=== PATIENT | male | born 1960 | race Caucasian/White ===

== ENCOUNTER 2018-01-23 06:53 | Day surgery (SDC) | payer OTHER, BC ==
[~2018-01-23 06:53] MED LIST: Lidocaine 1% PF 2 ML SDV INJECT SCH
[2018-01-23] MEDS: Polymyxin B/Trimethoprim 10 ML Bottle EYELF SCH ×4 (07:11→08:50)
[2018-01-23] MEDS: Brimonidine 0.2% Ophth Soln 5 ML Bottle EYELF SCH ×4 (07:17→08:50)
[2018-01-23] MEDS: Phenylephrine 2.5% Ophth Soln 2 ML Bot EYELF SCH ×5 (07:21→08:28)
--- NOTE | 2018-01-23 07:30 | PCM.PREANE ---
Preanesthetic Assessment - Procedure Proposed Procedure: Left Eye Extraction cataract with implant - Anesthesia/Transfusion/Family Hx Anesthesia History: Prior Anesthesia Without Reaction Family History of Anesthesia Reaction: No Transfusion History: No Prior Transfusion(s) - Review of Systems General: No Symptoms Pulmonary: No Symptoms Cardiovascular: No Symptoms Gastrointestinal: No Symptoms Neurological: No Symptoms Other: Reports: Diabetes (Type I - BS 255, no insulin this morning ) - Physical Assessment NPO Status Date: 01/22/18 NPO Status Time: 20:00 O2 Sat by Pulse Oximetry: 93 Respiratory Rate: 16 Vital Signs: Last Vital Signs Temp 37.2 C 01/23/18 07:00 Pulse 91 01/23/18 07:00 Resp 16 01/23/18 07:00 BP 124/66 01/23/18 07:00 Pulse Ox 93 L 01/23/18 07:00 Height: 1.78 m Weight: 81.647 kg ASA Class: 2 Mental Status: Alert & Oriented x3 Dentition: Reports: Dentures (leaving in for procedure ) Thyro-Mental Finger Breadths: 3 Mouth Opening Finger Breadths: 5 ROM/Head Extension: Full Lungs: Clear to Auscultation, Normal Respiratory Effort Cardiovascular: Regular Rate, Regular Rhythm - Allergies Allergies/Adverse Reactions: Allergies Allergy/AdvReac Type Severity Reaction Status Date / Time Penicillins Allergy Cannot Verified 01/22/18 13:12 Remember - Blood Blood Available: No - Acknowledgements Anesthesia Type Planned: MAC Pt an Appropriate Candidate for the Planned Anesthesia: Yes Alternatives and Risks of Anesthesia Discussed w Pt/Guardian: Yes Pt/Guardian Understands and Agrees with Anesthesia Plan: Yes PreAnesthesia Questionnaire - HOME MEDS Home Medications: Home Meds Aspirin [Halfprin] 81 mg PO DAILY 01/22/18 [History] Insulin Glarg,Human.Rec.Analog [Lantus Solostar] 12 units SQ QPM 01/22/18 [ History] Insulin Glarg,Human.Rec.Analog [Lantus Solostar] 24 units SQ QAM 01/22/18 [ History] Insulin Lispro [Humalog] 1 dose SQ ASDIRECTED 01/22/18 [History] Krill/Om-3/DHA/EPA/Phospho/Ast [Krill Oil 1,000 mg Softgel] 1 cap PO DAILY 01/22 [History] Lisinopril [Lisinopril] 20 mg PO DAILY 01/22/18 [History] Naphazo HCl/HPM/PS 80/Zn Sulf [Clear Eyes Complete Eye Drops] 1 drop EYEBOTH ASDIRECTED 01/22/18 [History] - CURRENT (IN HOUSE) MEDS Current Meds: Current Medications Brimonidine Tartrate (Alphagan 0.2% Ophth Soln) 0 ml EYELF ASDIRECTED YUNIOR Stop: 01/23/18 18:00 Last Admin: 01/23/18 07:17 Dose: 1 drop Cefuroxime Sodium (Zinacef) 0 mg EYELF ASDIRECTED YUNIOR Stop: 01/23/18 18:00 Lidocaine HCl (Xylocaine-Mpf 1%) 10 ml INJECT ASDIRECTED YUNIOR Stop: 01/23/18 18:00 Phenylephrine HCl (Saul-Synephrine 2.5% Ophth Soln) 0 ml EYELF ASDIRECTED YUNIOR Stop: 01/23/18 18:00 Last Admin: 01/23/18 07:21 Dose: 1 drop Pilocarpine HCl (Pilocar 4% Ophth Soln) 0 ml EYELF ASDIRECTED YUNIOR Stop: 01/23/18 18:00 Polymyxin/Trimethoprim Sulfate (Polytrim Ophth Soln) 0 ml EYELF ASDIRECTED YUNIOR Stop: 01/23/18 18:00 Last Admin: 01/23/18 07:11 Dose: 1 drop Tetracaine HCl (Tetracaine 0.5% Steri-Unit Radha) 0 ml EYELF ASDIRECTED YUNIOR Stop: 01/23/18 18:00 Tropicamide (Mydriacyl 1% Ophth Soln) 0 ml EYELF ASDIRECTED YUNIOR Stop: 01/23/18 18:00
[2018-01-23] MEDS: Tetracaine HCl/PF 0.5% 4 ML Bottle EYELF SCH ×2 (08:08→08:36)
[2018-01-23] MEDS: Pilocarpine 4% Ophth Soln 15 ML Bot EYELF SCH ×2 (08:42→08:50)
[2018-01-23] MEDS: Cefuroxime 10 MG/ML SYRINGE EYELF SCH ×2 (08:42→08:49)
--- NOTE | 2018-01-23 08:52 | PCM48HPAN ---
Post Anesthesia Note - EVALUATION WITHIN 48HRS OF ANESTHETIC Vital Signs in Normal Range: Yes Patient Participated in Evaluation: Yes Respiratory Function Stable: Yes Airway Patent: Yes Cardiovascular Function Stable: Yes Hydration Status Stable: Yes Pain Control Satisfactory: Yes Nausea and Vomiting Control Satisfactory: Yes Mental Status Recovered: Yes Pulse Rate: 67 SaO2: 92 Resp Rate: 16 Blood Pressure: 124/66
== END 2018-01-23 09:03 | disposition home or self-care (01) ==
LOC: JD.SDS 06:53
PROVIDERS: ATTEND Ophthalmology
DX: Q12.0 Congenital cataract (principal); E11.69 Type 2 diabetes mellitus with other specified complication; H25.13 Age-related nuclear cataract, bilateral; H35.3131 Nonexudative age-related macular degeneration, bilateral, early dry stage; H02.831 Dermatochalasis of right upper eyelid; H02.834 Dermatochalasis of left upper eyelid; I10 Essential (primary) hypertension; F17.210 Nicotine dependence, cigarettes, uncomplicated; Z88.0 Allergy status to penicillin; Z79.82 Long term (current) use of aspirin; Z79.4 Long term (current) use of insulin; Z79.899 Other long term (current) drug therapy
CPT/HCPCS: 66984; C1780; J0697; A9270-GY

== ENCOUNTER 2018-03-20 08:49 | Day surgery (SDC) | payer OTHER, BC ==
[~2018-03-20 08:49] MED LIST changes: +Cefuroxime 10 MG/ML SYRINGE EYERT SCH; +Pilocarpine 4% Ophth Soln 15 ML Bot EYERT SCH
[2018-03-20] MEDS: Polymyxin B/Trimethoprim 10 ML Bottle EYERT SCH ×3 (09:25→11:13)
[2018-03-20] MEDS: Brimonidine 0.2% Ophth Soln 5 ML Bottle EYERT SCH ×3 (09:32→11:13)
[2018-03-20] MEDS: Phenylephrine 2.5% Ophth Soln 2 ML Bot EYERT SCH ×5 (09:37→10:52)
--- NOTE | 2018-03-20 09:49 | PCM.PREANE ---
Preanesthetic Assessment - Anesthesia/Transfusion/Family Hx Anesthesia History: Prior Anesthesia Without Reaction Family History of Anesthesia Reaction: No Transfusion History: No Prior Transfusion(s) - Review of Systems General: No Symptoms, Other (blood sugar at 922 was 188) Pulmonary: Other (smoker 1/2 ppd) Cardiovascular: Other (HTN) Gastrointestinal: No Symptoms Neurological: No Symptoms Other: Reports: Diabetes - Physical Assessment NPO Status Date: 03/19/18 NPO Status Time: 20:00 Pulse: 87 O2 Sat by Pulse Oximetry: 93 Respiratory Rate: 16 Blood Pressure: 113/70 Temperature: 37.1 C Weight: 82.024 kg ASA Class: 2 Mental Status: Alert & Oriented x3 Airway Class: Mallampati = 2 Dentition: Reports: Normal Dentition, Dentures, Edentulous Thyro-Mental Finger Breadths: 3 Mouth Opening Finger Breadths: 3 ROM/Head Extension: Full Lungs: Clear to Auscultation, Normal Respiratory Effort Cardiovascular: Regular Rate, Regular Rhythm - Allergies Allergies/Adverse Reactions: Allergies Allergy/AdvReac Type Severity Reaction Status Date / Time Penicillins Allergy Cannot Verified 03/19/18 11:56 Remember - Acknowledgements Anesthesia Type Planned: MAC Pt an Appropriate Candidate for the Planned Anesthesia: Yes Alternatives and Risks of Anesthesia Discussed w Pt/Guardian: Yes Pt/Guardian Understands and Agrees with Anesthesia Plan: Yes PreAnesthesia Questionnaire - HOME MEDS Home Medications: Home Meds Aspirin [Halfprin] 81 mg PO DAILY 01/22/18 [History] Insulin Glarg,Human.Rec.Analog [Lantus Solostar] 12 units SQ QPM 01/22/18 [ History] Insulin Glarg,Human.Rec.Analog [Lantus Solostar] 24 units SQ QAM 01/22/18 [ History] Insulin Lispro [Humalog] 1 dose SQ ASDIRECTED 01/22/18 [History] Krill/Om-3/DHA/EPA/Phospho/Ast [Krill Oil 1,000 mg Softgel] 1 cap PO DAILY 01/22 [History] Lisinopril 20 mg PO DAILY 01/22/18 [History] Naphazo HCl/HPM/PS 80/Zn Sulf [Clear Eyes Complete Eye Drops] 1 drop EYEBOTH ASDIRECTED 01/22/18 [History] - CURRENT (IN HOUSE) MEDS Current Meds: Current Medications Brimonidine Tartrate (Alphagan 0.2% Ophth Soln) 0 ml EYERT ASDIRECTED YUNIOR Stop: 03/20/18 18:00 Last Admin: 03/20/18 09:32 Dose: 1 drop Cefuroxime Sodium (Zinacef) 0 mg EYERT ASDIRECTED YUNIOR Stop: 03/20/18 18:00 Lidocaine HCl (Xylocaine-Mpf 1%) 10 ml INJECT ASDIRECTED YUNIOR Stop: 03/20/18 18:00 Phenylephrine HCl (Saul-Synephrine 2.5% Ophth Soln) 0 ml EYERT ASDIRECTED YUNIOR Stop: 03/20/18 18:00 Last Admin: 03/20/18 09:37 Dose: 1 drop Pilocarpine HCl (Pilocar 4% Ophth Soln) 0 ml EYERT ASDIRECTED YUNIOR Stop: 03/20/18 18:00 Polymyxin/Trimethoprim Sulfate (Polytrim Ophth Soln) 0 ml EYERT ASDIRECTED YUNIOR Stop: 03/20/18 18:00 Last Admin: 03/20/18 09:25 Dose: 1 drop Tetracaine HCl (Tetracaine 0.5% Steri-Unit Radha) 0 ml EYERT ASDIRECTED YUNIOR Stop: 03/20/18 18:00 Tropicamide (Mydriacyl 1% Oph Soln) 0 ml EYERT ASDIRECTED YUNIOR Stop: 03/20/18 18:00 Last Admin: 03/20/18 09:42 Dose: 1 drop
[2018-03-20] MEDS: Tetracaine HCl/PF 0.5% 4 ML Bottle EYERT SCH ×2 (10:40→11:04)
--- NOTE | 2018-03-20 11:17 | PCM48HPAN ---
Post Anesthesia Note - EVALUATION WITHIN 48HRS OF ANESTHETIC Vital Signs in Normal Range: Yes Patient Participated in Evaluation: Yes Respiratory Function Stable: Yes Airway Patent: Yes Cardiovascular Function Stable: Yes Hydration Status Stable: Yes Pain Control Satisfactory: Yes Nausea and Vomiting Control Satisfactory: Yes Mental Status Recovered: Yes Pulse Rate: 64 SaO2: 97 Resp Rate: 16 Temperature: 37.1 C Blood Pressure: 120/71
== END 2018-03-20 11:23 | disposition home or self-care (01) ==
LOC: JD.SDS 08:49
PROVIDERS: ATTEND Ophthalmology
DX: H26.9 Unspecified cataract (principal); I10 Essential (primary) hypertension; E11.36 Type 2 diabetes mellitus with diabetic cataract; Z88.0 Allergy status to penicillin; Z79.82 Long term (current) use of aspirin; Z79.899 Other long term (current) drug therapy; Z79.4 Long term (current) use of insulin
CPT/HCPCS: 66984; C1780; J0697; A9270-GY